=== PATIENT | male | born 1950 | race Caucasian/White ===

== ENCOUNTER → 2017-06-28 | Outpatient (CLI) | payer MEDICARE ==
[~2017-06-28] MED LIST: ASPI325; ASPI325 PO; BENZ2; BUPR100ER PO; CLIN300 PO; CLON.2 PO; ENABLEX; FISH1000; FISH1000 PO; FURO20 PO; GABA100 PO; GABA600; GABA600 PO; GABA800 PO; GLYCOLAX; HALO5; LISI10 PO; LISI20; LORA1 PO; LORA2 PO; METH10; METH10 PO; METH40; METH40 PO; METO50; METO50ER PO; OMEP20ER; OMEP20ER PO; POTA10T PO; QUET100; SIMV20; SIMV20 PO; SIMV5 PO; UNKNOWN BP MED; VENAFAXINE
== END | disposition home or self-care (01) ==
LOC: LAB EV 12:07
DX: R31.9 Hematuria, unspecified (principal)
CPT/HCPCS: 87077; 87086; 87186

== ENCOUNTER → 2018-08-14 | Outpatient (CLI) | payer MEDICARE | END | disposition home or self-care (01) | LOC: LAB SHORT 16:00 → LAB EV 16:00 | DX: Z51.81 Encounter for therapeutic drug level monitoring (principal); Z79.899 Other long term (current) drug therapy | CPT/HCPCS: G0480 ==

== ENCOUNTER 2019-09-08 05:56 | Observation (INO) | payer MEDICARE ==
[~2019-09-08] VITALS: Ht 177.8 cm; Wt 118.5 kg
[~2019-09-08 05:56] MED LIST changes: +FISH OIL 1,0001 EACH PO; -FISH1000 PO; -SIMV5 PO; +ZOCOR20 MG PO
[2019-09-08 06:43] LABS: BASOPHILS ABSOLUTE AUTO 0.05 K/mm3 (0.00-0.23); BASOPHILS PERCENT AUTO 0 % (0-2); EOSINOPHILS ABSOLUTE AUTO 0.03 K/mm3 (0.00-0.68); EOSINOPHILS PERCENT AUTO 0 % (0-6); Hematocrit 34.1 % (37.0-53.0); Hemoglobin 11.1 g/dL (13.5-17.5); IMMATURE GRAN ABSOLUTE AUTO 0.07 K/mm3 (0.00-0.10); IMMATURE GRAN PERCENT AUTO 1 % (0-1); LYMPHOCYTES PERCENT AUTO 7 % (21-46); MONOCYTES PERCENT AUTO 6 % (4-13); Mean Corpuscular HGB 29.1 pg (26.0-34.0); Mean Corpuscular HGB Conc 32.6 g/dL (31.5-36.5); Mean Corpuscular Volume 90 fL (80-100); Mean Platelet Volume 9.7 fL (9.1-12.4); NEUTROPHILS ABSOLUTE AUTO 11.49 K/mm3 (1.96-9.15); NEUTROPHILS PERCENT AUTO 86 % (41-73); Platelet Count 208 K/mm3 (150-400); RDW Coefficient Variation 13.7 % (11.7-14.2); RDW Standard Deviation 44.4 fL (35.1-46.3); Red Blood Cell Count 3.81 M/mm3 (4.30-5.90); White Blood Cell Count 13.34 K/mm3 (4.00-11.30)
[2019-09-08 07:09] LABS: Alanine Aminotransfer (ALT/SGP 14 U/L (12-78); Albumin, Blood 3.2 g/dL (3.4-5.0); Albumin/Globulin Ratio 1.1 (0.8-1.8); Alk Phos 52 U/L (50-136); Anion Gap 6 mmol/L (6-16); Aspartate Aminotrans (AST/SGOT 14 U/L (12-37); Bilirubin, Total 0.6 mg/dL (0.1-1.0); Blood Urea Nitrogen 14 mg/dL (8-24); Bun/Creatinine Ratio 17.5 (12.0-20.0); CO2, Blood 28 mmol/L (21-32); Calcium, Blood 8.2 mg/dL (8.5-10.1); Chloride, Blood 104 mmol/L (98-108); Globulin, Blood 2.8 g/dL (2.2-4.0); Glomerular Filtration Rate >60 (60-); Glucose, Blood 137 mg/dL (70-99); Potassium, Blood 4.2 mmol/L (3.5-5.5); Sodium, Blood 138 mmol/L (136-145); Troponin I <0.015 ng/mL (0.000-0.040)
[2019-09-08 08:01] LABS: Source, Urine Voided
[2019-09-08 08:14] LABS: Bilirubin, Urine Neg (Neg); Blood, Urine 4+ (Neg); Glucose Qualitative, Urine Neg (Neg); Ketones, Urine Neg (Neg); Leukocyte Esterase, Urine Neg (Neg); Nitrite, Urine Neg (Neg); Protein, Urine 1+ (Neg); Urobilinogen, Urine 1+ (Normal)
[2019-09-08 08:23] LABS: Appearance, Urine Clear (Clear); Bacteria Not Seen /hpf; Color, Urine Yellow (P-Yellow); Squamous Epithelial Cells Not Seen /hpf (Few); White Blood Cells, Urine Not Seen /hpf (0-5)
[2019-09-08 08:29] LABS: U Amphetamine Screen Not Detected; U Barbituate Screen Not Detected; U Benzodiazapine Screen DETECTED; U Buprenorphine Screen Not Detected; U Cannabinoids Screen Not Detected; U Cocaine Screen Not Detected; U Methadone Screen DETECTED; U Methamphetamine Screen Not Detected; U Opiates Screen Not Detected; U Oxycodone Screen Not Detected; U Phencyclidine Screen Not Detected; U Propoxyphene Screen Not Detected
--- NOTE | 2019-09-08 18:25 | NUR ---
PCU ADMIT/DAYSHIFT SUMMARY PATIENT ARRIVED TO UNIT VIA GURNEY FROM ER. PATIENT SLIDE SELF FROM GURNEY TO UNIT BED. LARGE FIRM HEMATOMA/ECCHYMOSIS NOTED ON LEFT HIP/THIGH - IMAGING COMPLETED - DISCUSSED FINDING WITH MD LOOMIS - PROVIDER STATED TO MONITOR SITE FOR REDNESS & S/SX OF INFECTION. LEFT CALF ALSO REPORT TO PROVIDER - NOTED TO BE MORE EDEMATOUS THAN RIGHT. BLE ELEVATED, BILATERAL PULSES STRONG/INTACT. PATIENT REMAINS ON ROOM AIR. CARDIEZEM GTT STARTED THIS SHIFT PER EMAR AT 5MG/HR. HEART RATE HAS IMPROVED FROM AFIB 130'S TO AFIB 80'S - OTHER VSS AND PATIENT ON ROOM AIR. PATIENT REPORTS CHRONIC PAIN AND ACUTE LEFT HIP PAIN. PATIENT REMAINED DROWSY T/O SHIFT - PAIN MEDICATIONS HELD THIS AFTERNOON. PATIENTS SON AND CAREGIVER UPDATE ON CONDITION THIS SHIFT. PATIENT ABLE TO SHIFT SELF IN BED BUT HAS NOT STOOD FOR THIS NURSE. PATIENT CONFUSED TO DATE BUT VERBALIZED HIS AND LOCATION. PATIENT HAS HAD MULTIPLE FALLS AT HOME PER CAREGIVER, BUT PER SON DRIVES HIMSELF TO HIS APPTS AND SHOPPING. PATIENT IS UNAWARE OF HIS HOME MEDICATIONS - ADMIT INCOMPLETE IN THIS AREA. NO ACUTE DISTRESS NOTED AT THIS TIME. WILL CONTINUE TO MONITOR AND REPORT TO NOC SHIFT RN, MONICA Harper
[2019-09-09 05:07] LABS: BASOPHILS ABSOLUTE AUTO 0.03 K/mm3 (0.00-0.23); BASOPHILS PERCENT AUTO 0 % (0-2); EOSINOPHILS PERCENT AUTO 1 % (0-6); Hemoglobin 9.1 g/dL (13.5-17.5); IMMATURE GRAN ABSOLUTE AUTO 0.04 K/mm3 (0.00-0.10); IMMATURE GRAN PERCENT AUTO 1 % (0-1); LYMPHOCYTES ABSOLUTE AUTO 1.64 K/mm3 (0.84-5.20); LYMPHOCYTES PERCENT AUTO 20 % (21-46); MONOCYTES ABSOLUTE AUTO 0.88 K/mm3 (0.16-1.47); MONOCYTES PERCENT AUTO 11 % (4-13); Mean Corpuscular HGB 29.1 pg (26.0-34.0); Mean Corpuscular HGB Conc 31.4 g/dL (31.5-36.5); Mean Platelet Volume 9.7 fL (9.1-12.4); NEUTROPHILS ABSOLUTE AUTO 5.41 K/mm3 (1.96-9.15); NEUTROPHILS PERCENT AUTO 67 % (41-73); Platelet Count 174 K/mm3 (150-400); RDW Coefficient Variation 14.1 % (11.7-14.2); Red Blood Cell Count 3.13 M/mm3 (4.30-5.90)
[2019-09-09 05:10] LABS: Mean Corpuscular Volume 93 fL (80-100)
[2019-09-09 05:21] LABS: International Normalized Ratio 1.07; Prothrombin Time Results 11.4 Sec (9.7-11.5)
--- NOTE | 2019-09-09 05:28 | NUR ---
SHIFT SUMMARY PT ALERT, ORIENTED TO SELF, LOCATION, & EVENT, DISORIENTED TO TIME. PT STATES DATE TO BE MAY 07, 2001. PT ALSO STATING "GOOD MORNING" WHEN ROUNDING ON PT @ APPROX 2200 THIS SHIFT. PT REORIENTED TO TIME. BP LOW, OTHERWISE VSS. NO EVENTS OVER NIGHT. LUNG SOUNDS W/ EXPIRATORY WHEEZE. SPO2 > 92% ON RA. MONITOR SHOWS AFIB, HR 60's-90's. CARDIZEM GTT PLACED ON STANDBY @ APPROX 1900 THIS SHIFT AND HAS REMAINED ON STANDBY. NS W/ KCL GTT INFUSING PER ORDERS. BRUISING NOTED TO L HIP/POSTERIOR UPPER LEG. WILL CONTINUE TO MONITOR AND PROVIDE CARE UNTIL REPORT OFF TO DAY SHIFT RN.
[2019-09-09 05:31] LABS: Albumin, Blood 2.7 g/dL (3.4-5.0); Anion Gap 4 mmol/L (6-16); Blood Urea Nitrogen 15 mg/dL (8-24); CO2, Blood 30 mmol/L (21-32); Calcium, Blood 7.8 mg/dL (8.5-10.1); Chloride, Blood 107 mmol/L (98-108); Creatinine, Blood 0.83 mg/dL (0.60-1.20); Glomerular Filtration Rate >60 (60-); Glucose, Blood 99 mg/dL (70-99); Phosphorus, Blood 2.9 mg/dL (2.5-4.9); Sodium, Blood 141 mmol/L (136-145)
--- NOTE | 2019-09-09 12:12 | NUR ---
Patient is sitting up in bed and alert. Patient tells me about his fall and about his medical history. Patient also tells about his cousin who was a good friend of this writer technical publications. We talk about the positive affect he has had on the both of us. Patient talks about his life, family and diogo history. Patient shares peronal stories and issues. I listen empathically, normalize patient's experience and provide pastoral certified alcohol counselor and prayer. Patient responds well and shows signs of restored diogo. I will continue to remain available to patient and family.
[2019-09-09] MEDS ORDERED: GABA300 PO (12:39)
[2019-09-09] MEDS ORDERED: DULO60 PO (12:47)
[2019-09-09] MEDS ORDERED: Norco 5-325 Ta1 EACH PO (12:50)
[2019-09-09] MEDS ORDERED: TRAZ50 PO (12:51)
--- NOTE | 2019-09-09 13:45 | NUR ---
DISCHARGED TO HOME. INSTRUCTIONS REVIEWED WITH SON VIA TELEPHONE. RX'S PHONED INTO [facility] BY PERSONNEL GENERALIST MANAGER AMY.
== END 2019-09-09 13:47 | disposition home or self-care (01) ==
LOC: ER 05:56 → PCU 05:57
PROVIDERS: Emergency Medicine; ADMIT Internal Medicine Gastroenterology
DX: I48.91 Unspecified atrial fibrillation (principal); I69.351 Hemiplegia and hemiparesis following cerebral infarction affecting right dominant side; E78.00 Pure hypercholesterolemia, unspecified; F17.210 Nicotine dependence, cigarettes, uncomplicated; F17.290 Nicotine dependence, other tobacco product, uncomplicated; Z79.82 Long term (current) use of aspirin; Z79.899 Other long term (current) drug therapy; G89.29 Other chronic pain
CPT/HCPCS: 36415; 71045; 73502; 73700; 80053; 80069; 81001; 83880; 84443; 84484; 85025; 85610; 93005; 93010; 96361; 96374; 96375; 96376; 99285-25; A9270-GY; C8929; G0378; J1170; J2405; J3480; J7030; Q9957

== ENCOUNTER 2019-11-24 08:20 | Emergency (ER) | payer MEDICARE ==
[~2019-11-24] VITALS: Ht 177.8 cm; Wt 113.4 kg
[~2019-11-24 08:20] MED LIST changes: +DULO60 PO; +GABA300 PO; +Norco 5-325 Ta1 EACH PO; +TRAZ50 PO
[2019-11-24 08:43] LABS: Source, Urine Voided
[2019-11-24 08:51] LABS: Appearance, Urine Clear (Clear); Bilirubin, Urine Neg (Neg); Blood, Urine 4+ (Neg); Color, Urine Yellow (P-Yellow); Glucose Qualitative, Urine Neg (Neg); Ketones, Urine 1+ (Neg); Leukocyte Esterase, Urine Neg (Neg); Nitrite, Urine Neg (Neg); Protein, Urine Neg (Neg); Urobilinogen, Urine NORM (Normal)
[2019-11-24 08:59] LABS: White Blood Cells, Urine 0-2 /hpf (0-5)
[2019-11-24 09:00] LABS: Bacteria Rare /hpf; Squamous Epithelial Cells Not Seen /hpf (Few)
[2019-11-24 09:34] LABS: BASOPHILS ABSOLUTE AUTO 0.03 K/mm3 (0.00-0.23); BASOPHILS PERCENT AUTO 0 % (0-2); EOSINOPHILS PERCENT AUTO 0 % (0-6); Hematocrit 46.7 % (37.0-53.0); Hemoglobin 14.8 g/dL (13.5-17.5); IMMATURE GRAN ABSOLUTE AUTO 0.07 K/mm3 (0.00-0.10); IMMATURE GRAN PERCENT AUTO 1 % (0-1); LYMPHOCYTES ABSOLUTE AUTO 0.84 K/mm3 (0.84-5.20); LYMPHOCYTES PERCENT AUTO 8 % (21-46); MONOCYTES PERCENT AUTO 3 % (4-13); Mean Corpuscular HGB 28.2 pg (26.0-34.0); Mean Corpuscular HGB Conc 31.7 g/dL (31.5-36.5); Mean Corpuscular Volume 89 fL (80-100); Mean Platelet Volume 9.5 fL (9.1-12.4); NEUTROPHILS ABSOLUTE AUTO 9.85 K/mm3 (1.96-9.15); NEUTROPHILS PERCENT AUTO 89 % (41-73); Platelet Count 230 K/mm3 (150-400); RDW Coefficient Variation 13.5 % (11.7-14.2); Red Blood Cell Count 5.25 M/mm3 (4.30-5.90); White Blood Cell Count 11.09 K/mm3 (4.00-11.30)
[2019-11-24] MEDS ORDERED: ESCITALOPRAM TAB 20M (09:36)
[2019-11-24 09:53] LABS: Alanine Aminotransfer (ALT/SGP 19 U/L (12-78); Albumin, Blood 3.9 g/dL (3.4-5.0); Albumin/Globulin Ratio 1.1 (0.8-1.8); Alk Phos 70 U/L (50-136); Anion Gap 4 mmol/L (6-16); Aspartate Aminotrans (AST/SGOT 15 U/L (12-37); Bilirubin, Total 0.3 mg/dL (0.1-1.0); Blood Urea Nitrogen 15 mg/dL (8-24); Bun/Creatinine Ratio 17.6 (12.0-20.0); CO2, Blood 31 mmol/L (21-32); Calcium, Blood 8.7 mg/dL (8.5-10.1); Chloride, Blood 102 mmol/L (98-108); Creatinine, Blood 0.85 mg/dL (0.60-1.20); Globulin, Blood 3.7 g/dL (2.2-4.0); Glomerular Filtration Rate >60 (60-); Glucose, Blood 141 mg/dL (70-99); Potassium, Blood 4.1 mmol/L (3.5-5.5); Sodium, Blood 137 mmol/L (136-145); Total Protein, Blood 7.6 g/dL (6.4-8.2)
== END 2019-11-24 14:37 | disposition home or self-care (01) ==
LOC: ER 08:20
PROVIDERS: Emergency Medicine
DX: I48.91 Unspecified atrial fibrillation (principal); G89.29 Other chronic pain; M54.9 Dorsalgia, unspecified; R41.82 Altered mental status, unspecified; R32 Unspecified urinary incontinence; R31.29 Other microscopic hematuria; G40.909 Epilepsy, unspecified, not intractable, without status epilepticus; K21.9 Gastro-esophageal reflux disease without esophagitis; F32.9 Major depressive disorder, single episode, unspecified; F41.9 Anxiety disorder, unspecified; I10 Essential (primary) hypertension; E78.00 Pure hypercholesterolemia, unspecified; F17.210 Nicotine dependence, cigarettes, uncomplicated; Z91.030 Bee allergy status; Z79.82 Long term (current) use of aspirin; Z86.73 Personal history of transient ischemic attack (TIA), and cerebral infarction without residual deficits; Z79.899 Other long term (current) drug therapy
CPT/HCPCS: 70450; 71045; 80053; 81001; 85025; 93005; 93010; 96374; 96375; 99285-25; J1885; J3010

== ENCOUNTER 2021-02-06 00:51 | Emergency (ER) | payer MEDICARE ==
[~2021-02-06] VITALS: Ht 177.8 cm; Wt 98.4 kg
[~2021-02-06 00:51] MED LIST changes: +ESCITALOPRAM TAB 20M
[2021-02-06 01:19] LABS: BASOPHILS ABSOLUTE AUTO 0.03 K/mm3 (0.00-0.23); BASOPHILS PERCENT AUTO 0 % (0-2); EOSINOPHILS ABSOLUTE AUTO 0.02 K/mm3 (0.00-0.68); EOSINOPHILS PERCENT AUTO 0 % (0-6); Hematocrit 41.1 % (37.0-53.0); Hemoglobin 13.5 g/dL (13.5-17.5); IMMATURE GRAN ABSOLUTE AUTO 0.05 K/mm3 (0.00-0.10); IMMATURE GRAN PERCENT AUTO 1 % (0-1); LYMPHOCYTES ABSOLUTE AUTO 1.26 K/mm3 (0.84-5.20); LYMPHOCYTES PERCENT AUTO 11 % (21-46); MONOCYTES ABSOLUTE AUTO 1.01 K/mm3 (0.16-1.47); MONOCYTES PERCENT AUTO 9 % (4-13); Mean Corpuscular HGB 28.8 pg (26.0-34.0); Mean Corpuscular HGB Conc 32.8 g/dL (31.5-36.5); Mean Corpuscular Volume 88 fL (80-100); Mean Platelet Volume 9.5 fL (9.1-12.4); NEUTROPHILS ABSOLUTE AUTO 8.74 K/mm3 (1.96-9.15); NEUTROPHILS PERCENT AUTO 79 % (41-73); Platelet Count 234 K/mm3 (150-400); RDW Coefficient Variation 13.7 % (11.7-14.2); RDW Standard Deviation 44.2 fL (35.1-46.3); Red Blood Cell Count 4.69 M/mm3 (4.30-5.90); White Blood Cell Count 11.11 K/mm3 (4.00-11.30)
[2021-02-06 01:43] LABS: Troponin I <0.015 ng/mL (0.000-0.040)
[2021-02-06 01:44] LABS: Alanine Aminotransfer (ALT/SGP 24 U/L (12-78); Albumin, Blood 3.1 g/dL (3.4-5.0); Albumin/Globulin Ratio 0.9 (0.8-1.8); Alk Phos 60 U/L (50-136); Anion Gap 5 mmol/L (6-16); Bilirubin, Total 0.3 mg/dL (0.1-1.0); Blood Urea Nitrogen 19 mg/dL (8-24); Bun/Creatinine Ratio 20.8 (12.0-20.0); CO2, Blood 26 mmol/L (21-32); Calcium, Blood 8.6 mg/dL (8.5-10.1); Chloride, Blood 105 mmol/L (98-108); Creatinine, Blood 0.91 mg/dL (0.60-1.20); Globulin, Blood 3.6 g/dL (2.2-4.0); Glomerular Filtration Rate >60 (60-); Glucose, Blood 95 mg/dL (70-99); Potassium, Blood 4.2 mmol/L (3.5-5.5); Sodium, Blood 136 mmol/L (136-145); Total Protein, Blood 6.7 g/dL (6.4-8.2)
[2021-02-06 01:49] LABS: International Normalized Ratio 1.06; Prothrombin Time Results 11.1 Sec (9.7-11.5)
[2021-02-06 01:55] LABS: Aspartate Aminotrans (AST/SGOT 19 U/L (12-37)
[2021-02-06 03:13] LABS: Source, Urine Clean Catch
[2021-02-06 03:14] LABS: Bilirubin, Urine Neg (Neg); Blood, Urine 2+ (Neg); Glucose Qualitative, Urine Neg (Neg); Ketones, Urine Neg (Neg); Leukocyte Esterase, Urine Neg (Neg); Nitrite, Urine Neg (Neg); Protein, Urine Neg (Neg); Specific Gravity, Urine 1.015 (1.003-1.022); Urobilinogen, Urine NORM (Normal)
[2021-02-06 03:15] LABS: Appearance, Urine Clear (Clear); Color, Urine Yellow (P-Yellow)
[2021-02-06 03:21] LABS: Bacteria Few /hpf; Squamous Epithelial Cells Not Seen /hpf (Few); White Blood Cells, Urine 0-2 /hpf (0-5)
[2021-02-06 03:22] LABS: Hyaline Casts 0-2 /lpf (0-2); Mucus Light (0-Heavy)
== END 2021-02-06 04:22 | disposition home or self-care (01) ==
LOC: ER 00:51
PROVIDERS: Emergency Medicine
DX: S51.012A Laceration without foreign body of left elbow, initial encounter (principal); G40.909 Epilepsy, unspecified, not intractable, without status epilepticus; K21.9 Gastro-esophageal reflux disease without esophagitis; I10 Essential (primary) hypertension; F17.210 Nicotine dependence, cigarettes, uncomplicated; Z86.73 Personal history of transient ischemic attack (TIA), and cerebral infarction without residual deficits; Z91.030 Bee allergy status; Z79.899 Other long term (current) drug therapy; Z79.82 Long term (current) use of aspirin; W19.XXXA Unspecified fall, initial encounter
CPT/HCPCS: 36415; 70450; 72125; 73080; 80053; 81001; 83605; 84484; 85025; 85610; 90471; 90714; 93005; 93010; 99284-25

== ENCOUNTER 2022-10-15 22:20 | Emergency (ER) | payer MEDICARE ==
[~2022-10-15] VITALS: Ht 180.3 cm; Wt 106.6 kg
[2022-10-15 23:11] LABS: BASOPHILS ABSOLUTE AUTO 0.02 K/mm3 (0.00-0.23); BASOPHILS PERCENT AUTO 0 % (0-2); EOSINOPHILS ABSOLUTE AUTO 0.05 K/mm3 (0.00-0.68); EOSINOPHILS PERCENT AUTO 1 % (0-6); Hematocrit 41.9 % (37.0-53.0); Hemoglobin 13.8 g/dL (13.5-17.5); IMMATURE GRAN ABSOLUTE AUTO 0.03 K/mm3 (0.00-0.10); IMMATURE GRAN PERCENT AUTO 0 % (0-1); LYMPHOCYTES ABSOLUTE AUTO 0.64 K/mm3 (0.84-5.20); LYMPHOCYTES PERCENT AUTO 7 % (21-46); MONOCYTES ABSOLUTE AUTO 0.59 K/mm3 (0.16-1.47); MONOCYTES PERCENT AUTO 6 % (4-13); Mean Corpuscular HGB 28.6 pg (26.0-34.0); Mean Corpuscular HGB Conc 32.9 g/dL (31.5-36.5); Mean Corpuscular Volume 87 fL (80-100); Mean Platelet Volume 9.7 fL (9.1-12.4); NEUTROPHILS ABSOLUTE AUTO 8.43 K/mm3 (1.96-9.15); NEUTROPHILS PERCENT AUTO 86 % (41-73); Platelet Count 125 K/mm3 (150-400); RDW Coefficient Variation 13.2 % (11.7-14.2); RDW Standard Deviation 41.4 fL (35.1-46.3); Red Blood Cell Count 4.83 M/mm3 (4.30-5.90); White Blood Cell Count 9.76 K/mm3 (4.00-11.30)
[2022-10-15 23:43] LABS: Albumin, Blood 3.5 g/dL (3.4-5.0); Bilirubin, Total 0.5 mg/dL (0.1-1.0); Calcium, Blood 8.7 mg/dL (8.5-10.1); Creatinine, Blood 1.07 mg/dL (0.60-1.20); Globulin, Blood 3.4 g/dL (2.2-4.0); Potassium, Blood 4.6 mmol/L (3.5-5.5); Total Protein, Blood 6.9 g/dL (6.4-8.2)
[2022-10-16 01:19] LABS: Source, Urine Straight Cath
[2022-10-16 01:43] LABS: Appearance, Urine Clear (Clear); Bilirubin, Urine Neg (Neg); Blood, Urine 2+ (Neg); Color, Urine Yellow (P-Yellow); Glucose Qualitative, Urine Neg (Neg); Ketones, Urine Neg (Neg); Leukocyte Esterase, Urine Neg (Neg); Nitrite, Urine Neg (Neg); Protein, Urine Neg (Neg); Urobilinogen, Urine 1+ (Normal)
[2022-10-16 01:57] LABS: Bacteria Few /hpf; Red Blood Cells, Urine 0-2 /hpf (0-2); Squamous Epithelial Cells Few /hpf (Few); White Blood Cells, Urine 0-2 /hpf (0-5)
[2022-10-16 03:04] VITALS: BP 96/66
== END 2022-10-16 04:43 | disposition home or self-care (01) ==
LOC: ER 22:20
PROVIDERS: Emergency Medicine
DX: R41.82 Altered mental status, unspecified (principal); Z88.8 Allergy status to other drugs, medicaments and biological substances; Z79.899 Other long term (current) drug therapy; Z79.82 Long term (current) use of aspirin; G40.909 Epilepsy, unspecified, not intractable, without status epilepticus; K21.9 Gastro-esophageal reflux disease without esophagitis; E78.00 Pure hypercholesterolemia, unspecified; I10 Essential (primary) hypertension; F17.210 Nicotine dependence, cigarettes, uncomplicated
CPT/HCPCS: 80053; 81001; 85025; 93005; 93010; 99285-25

== ENCOUNTER → 2023-05-18 | Outpatient (CLI) | payer MEDICARE ==
[2023-05-18 09:58] LABS: BASOPHILS ABSOLUTE AUTO 0.04 K/mm3 (0.00-0.23); BASOPHILS PERCENT AUTO 1 % (0-2); EOSINOPHILS ABSOLUTE AUTO 0.29 K/mm3 (0.00-0.68); EOSINOPHILS PERCENT AUTO 4 % (0-6); Hematocrit 37.7 % (37.0-53.0); Hemoglobin 11.9 g/dL (13.5-17.5); IMMATURE GRAN ABSOLUTE AUTO 0.09 K/mm3 (0.00-0.10); IMMATURE GRAN PERCENT AUTO 1 % (0-1); LYMPHOCYTES ABSOLUTE AUTO 1.09 K/mm3 (0.84-5.20); LYMPHOCYTES PERCENT AUTO 16 % (21-46); MONOCYTES ABSOLUTE AUTO 0.52 K/mm3 (0.16-1.47); MONOCYTES PERCENT AUTO 8 % (4-13); Mean Corpuscular HGB 28.8 pg (26.0-34.0); Mean Corpuscular HGB Conc 31.6 g/dL (31.5-36.5); Mean Corpuscular Volume 91 fL (80-100); Mean Platelet Volume 8.7 fL (9.1-12.4); NEUTROPHILS PERCENT AUTO 69 % (41-73); Platelet Count 160 K/mm3 (150-400); Red Blood Cell Count 4.13 M/mm3 (4.30-5.90); White Blood Cell Count 6.63 K/mm3 (4.00-11.30)
[2023-05-18 10:04] LABS: Bun/Creatinine Ratio 12.9 (12.0-20.0); Calcium, Blood 8.5 mg/dL (8.5-10.1); Creatinine, Blood 1.01 mg/dL (0.60-1.20); Potassium, Blood 4.1 mmol/L (3.5-5.5)
== END | disposition home or self-care (01) ==
LOC: LAB 09:54 → LAB SHORT 09:54
PROVIDERS: Physician Assistant Medical
DX: R60.9 Edema, unspecified (principal)
CPT/HCPCS: 80048; 85025; 85379

== ENCOUNTER → 2023-08-12 | Outpatient (CLI) | payer MEDICARE | END | disposition home or self-care (01) | LOC: LAB 10:06 → LAB SHORT 10:06 | DX: N39.0 Urinary tract infection, site not specified (principal) ==

== ENCOUNTER 2023-11-07 07:07 | Inpatient (IN) | payer MEDICARE ==
[~2023-11-07] VITALS: Ht 172.7 cm; Wt 127.9 kg
[~2023-11-07 07:07] MED LIST changes: +ACETAMINOPHEN500 MG PO; +ALBU90OI; +Aspir 8181 MG PO; +DULOXETINE HCL60 M1; +FUROSEMIDE20 MG PO; +GABAPENTIN600 MG PO; +K-Dur10 MEQ; +METHADONE HCL1010 PO; +METOPROLOL TART5010 PO; +MOBIC15 MG PO; +OMEPRAZOLE20 MG PO; +Simvastatin20 MG PO; +TAMSULOSIN HCL0.4 M1 PO; +TRAZ100 PO
[2023-11-07] MEDS ORDERED: Albuterol 2.5 MG/3 ML VIAL INH SCH (07:15)
[2023-11-07] MEDS ORDERED: MethylPREDNISolone Sod Succ 125 MG Vial IV ONE (07:15)
[2023-11-07 07:24] LABS: BASOPHILS ABSOLUTE AUTO 0.05 K/mm3 (0.00-0.23); BASOPHILS PERCENT AUTO 1 % (0-2); EOSINOPHILS ABSOLUTE AUTO 0.22 K/mm3 (0.00-0.68); EOSINOPHILS PERCENT AUTO 2 % (0-6); Hematocrit 38.7 % (37.0-53.0); Hemoglobin 12.6 g/dL (13.5-17.5); IMMATURE GRAN ABSOLUTE AUTO 0.05 K/mm3 (0.00-0.10); IMMATURE GRAN PERCENT AUTO 1 % (0-1); LYMPHOCYTES ABSOLUTE AUTO 0.84 K/mm3 (0.84-5.20); LYMPHOCYTES PERCENT AUTO 8 % (21-46); MONOCYTES ABSOLUTE AUTO 0.59 K/mm3 (0.16-1.47); MONOCYTES PERCENT AUTO 6 % (4-13); Mean Corpuscular HGB 28.6 pg (26.0-34.0); Mean Corpuscular HGB Conc 32.6 g/dL (31.5-36.5); Mean Corpuscular Volume 88 fL (80-100); NEUTROPHILS ABSOLUTE AUTO 8.83 K/mm3 (1.96-9.15); NEUTROPHILS PERCENT AUTO 83 % (41-73); Platelet Count 136 K/mm3 (150-400); RDW Coefficient Variation 14.1 % (11.7-14.2); RDW Standard Deviation 45.4 fL (35.1-46.3); White Blood Cell Count 10.58 K/mm3 (4.00-11.30)
[2023-11-07 07:43] LABS: Albumin, Blood 3.4 g/dL (3.4-5.0); Albumin/Globulin Ratio 1.1 (0.8-1.8); Bilirubin, Total 0.6 mg/dL (0.1-1.0); Bun/Creatinine Ratio 13.1 (12.0-20.0); Calcium, Blood 8.1 mg/dL (8.5-10.1); Creatinine, Blood 0.84 mg/dL (0.60-1.20); Globulin, Blood 3.1 g/dL (2.2-4.0); Potassium, Blood 4.2 mmol/L (3.5-5.5); Total Protein, Blood 6.5 g/dL (6.4-8.2)
[2023-11-07 08:13] LABS: Influenza A, PCR NEGATIVE (NEGATIVE); Influenza B, PCR NEGATIVE (NEGATIVE); Resp Syncytial Virus, PCR NEGATIVE (NEGATIVE); SARS-Cov-2 (COVID-19) PCR, MMC NEGATIVE (NEGATIVE)
[2023-11-07] MEDS ORDERED: Azithromycin 500 MG in NS 250 ML IV ONE (08:40)
[2023-11-07] MEDS ORDERED: CefTRIAXone Sodium 1,000 MG in NS 100 ML IV ONE (08:40)
[2023-11-07] MEDS ORDERED: Methadone HCL 10 MG TAB PO ONE (09:40)
[2023-11-07] MEDS ORDERED: ACET325 PO (11:50)
[2023-11-07] MEDS ORDERED: FLUTICASONE-SAL12 G1 INH (11:54)
[2023-11-07] MEDS ORDERED: ALBU90OI INH (11:55)
[2023-11-07] MEDS ORDERED: DULO60 PO (11:56)
[2023-11-07] MEDS ORDERED: LOPE2C PO (11:58)
[2023-11-07] MEDS ORDERED: MYLANTA MAXIMUM10 ML PO (12:00)
[2023-11-07] MEDS ORDERED: MethylPREDNISolone Sod Succ 40 MG VIAL IV SCH (12:00)
[2023-11-07] MEDS ORDERED: Albuterol 2.5 MG/3 ML VIAL INH PRN (12:00)
[2023-11-07] MEDS ORDERED: POTA10T PO (12:01)
[2023-11-07] MEDS ORDERED: MIRALAX17 GM PO (12:01)
[2023-11-07] MEDS ORDERED: QUET25 PO (12:02)
[2023-11-07] MEDS ORDERED: TAMS.4ER PO (12:03)
[2023-11-07] MEDS ORDERED: Ipratropium/Albuterol SulF 2.5-0.5MG/3 ML Amp INH SCH (12:05)
[2023-11-07 12:12] VITALS: BP 136/109
[2023-11-07 12:35] LABS: International Normalized Ratio 1.03
[2023-11-07 12:51] VITALS: BP 123/83
[2023-11-07] MEDS ORDERED: Methadone HCL 10 MG TAB PO SCH (13:00)
--- NOTE | 2023-11-07 13:35 | NUR ---
ADMISSION NOTE: PATIENT ARRIVED TO THE UNIT AT 1150 VIA GURNEY. 4 STAFF MEMEBERS USES TO TRANSFER PATIENT TO BED VIA SLIDER SHEET. PATIENT STATES THAT HE CANNOT WALK OR STAND AND THAT HE USES A CANE/4 TORRE TO GET AROUND. HE HAS L SIDED DEFICIT BASED ON ASSSESSMENT. HE IS ALERT AND COMMUNICATING WITH STAFF. VITALS OBTAINED AND TELE STARTED. PATIENT SETTLED IN ROOM; ATE LUNCH. NO SIGNS OR SYMPTOMS OF DISTRESS, PLAN OF CARE ONGOING.
[2023-11-07] MEDS ORDERED: Gabapentin 300 MG Cap PO SCH (14:00)
[2023-11-07] MEDS ORDERED: QUEtiapine Fumarate 25 MG Tab PO PRN (15:10)
[2023-11-07 15:46] VITALS: BP 106/56
[2023-11-07] MEDS ORDERED: Metoprolol Tartrate 50 MG Tab PO ONE (17:00)
--- NOTE | 2023-11-07 17:40 | NUR ---
SHIFT SUMMARY: PT IS A&OX2-3 AND HAS BEEN IN BED; [facility]. SPOKE WITH PATIENT'S FAMILY SEEMS PATIENT GETS AROUND WITH A SCOOTER; DOESN'T WALK MUCH. 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 HE DID BECOME AGGITATED THIS AFTERNOON, RESULTING IN HIM THROWING HIS TELE BOX ACROSSED THE ROOM, FAMILY WAS PRESENT AT THIS TIME AND HELPED DEESCLATE THE PATIENT, BUT WARNED STAFF THAT HE CAN BECOME COMBATIVE. CALL MADE TO DR. BLAIR AND GOT PRN SEROQUEL. MEDICATION GIVEN AND CALMED PATIENT DOWN. PATIENT ALSO HAS BEEN SUSTATINING IN THE 110'S ON TELE; CALL MADE TO DR. BLAIR; ORDER TO GIVE LOPRESSOR 50 MG NOW AND SKIP 2100 DOSE. PATIENT IS IN BED, CALL LIGHT WITHIN REACH, NO SIGNS OR SYMPTOMS OF DISTRESS, PLAN OF CARE ONGOING.
[2023-11-07 19:20] VITALS: BP 111/85
[2023-11-07] MEDS ORDERED: Metoprolol Tartrate 50 MG Tab PO SCH (21:00)
[2023-11-07] MEDS ORDERED: Atorvastatin 10 MG Tab PO SCH (21:00)
[2023-11-07] MEDS ORDERED: TraZODone HCl 100 MG Tab PO SCH (21:00)
[2023-11-07] MEDS ORDERED: DULoxetine HCL 60 MG Capsule DR PO SCH (21:00)
[2023-11-08 04:42] VITALS: BP 138/95
[2023-11-08 05:41] LABS: BASOPHILS ABSOLUTE AUTO 0.02 K/mm3 (0.00-0.23); BASOPHILS PERCENT AUTO 0 % (0-2); EOSINOPHILS PERCENT AUTO 0 % (0-6); Hematocrit 35.8 % (37.0-53.0); Hemoglobin 11.5 g/dL (13.5-17.5); IMMATURE GRAN ABSOLUTE AUTO 0.14 K/mm3 (0.00-0.10); IMMATURE GRAN PERCENT AUTO 1 % (0-1); LYMPHOCYTES ABSOLUTE AUTO 0.71 K/mm3 (0.84-5.20); LYMPHOCYTES PERCENT AUTO 5 % (21-46); MONOCYTES ABSOLUTE AUTO 0.29 K/mm3 (0.16-1.47); MONOCYTES PERCENT AUTO 2 % (4-13); Mean Corpuscular HGB 28.3 pg (26.0-34.0); Mean Corpuscular HGB Conc 32.1 g/dL (31.5-36.5); Mean Corpuscular Volume 88 fL (80-100); Mean Platelet Volume 9.4 fL (9.1-12.4); NEUTROPHILS ABSOLUTE AUTO 14.18 K/mm3 (1.96-9.15); NEUTROPHILS PERCENT AUTO 93 % (41-73); Platelet Count 132 K/mm3 (150-400); RDW Coefficient Variation 14.4 % (11.7-14.2); RDW Standard Deviation 46.2 fL (35.1-46.3); Red Blood Cell Count 4.06 M/mm3 (4.30-5.90); White Blood Cell Count 15.34 K/mm3 (4.00-11.30)
[2023-11-08] MEDS ORDERED: Omeprazole 20 MG CapCR PO SCH (06:00)
[2023-11-08 06:05] LABS: Bilirubin, Total 0.4 mg/dL (0.1-1.0); Bun/Creatinine Ratio 18.8 (12.0-20.0); Calcium, Blood 8.5 mg/dL (8.5-10.1); Creatinine, Blood 0.85 mg/dL (0.60-1.20); Globulin, Blood 3.1 g/dL (2.2-4.0); Total Protein, Blood 6.1 g/dL (6.4-8.2)
[2023-11-08 07:39] VITALS: BP 119/87
[2023-11-08] MEDS ORDERED: NS 250 ML IV PRN (07:40)
[2023-11-08] MEDS ORDERED: CefTRIAXone Sodium 1,000 MG in NS 100 ML IV SCH (09:00)
[2023-11-08] MEDS ORDERED: Aspirin 81 MG TabEC PO SCH (09:00)
[2023-11-08] MEDS ORDERED: Azithromycin 500 MG in NS 250 ML IV SCH (09:00)
[2023-11-08] MEDS ORDERED: Lactobacil 2-S.Thermo-Bifido 1 1 Cap PO SCH (09:00)
[2023-11-08] MEDS ORDERED: Metoprolol Tartrate 50 MG Tab PO SCH (09:00)
[2023-11-08] MEDS ORDERED: Tamsulosin HCl 0.4 MG Cap PO SCH (09:00)
[2023-11-08] MEDS ORDERED: Enoxaparin 40 MG/0.4 ML SYR SC SCH (09:00)
--- NOTE | 2023-11-08 09:31 | NUR ---
NOTIFIED DR. BLAIR OF SKIN BREAKDOWN ON PATIENT'S BOTTOM; AWARE.
--- NOTE | 2023-11-08 14:12 | NUR ---
[facility] CAME BY TO CHECK ON THE PATIENT AND GET AN UPDATE; UPDATE GIVEN. THEY SAID THAT THE PATIENT IS A 1 PERSON ASSIST WITH A 4 POINT CANE ABOUT 30 FEET AND DOES USE AN ELECTRIC WHEELCHAIR TO GET AROUND. PATIENT DOES NEED TO HAVE HIS SHOES TO AMBULATE; SON WILL BRING IN PATIENT SHOES. DURING THIS TIME REDNESS IN PATIENT'S FACE WAS NOTICED; NO OTHER SYMPTOMS. NOTIFIED DR. BLAIR OF CHRISTINE/REDNESS IN PATIENT'S FACE; PATIENT HAS RECEIVED BOTH IV ANTIBIOTICS THAT WERE ORDERED THIS MORNING; NO ALLERGIES BESIDES BEE LISTED. NO NEW ORDERS FROM DR. BLAIR AT THIS TIME.
[2023-11-08 15:10] VITALS: BP 114/92
[2023-11-08] MEDS ORDERED: Ipratropium/Albuterol SulF 2.5-0.5MG/3 ML Amp INH PRN (15:30)
--- NOTE | 2023-11-08 15:38 | NUR ---
BASED OFF THE INFORMATION PROVIDED BY THE NURSE [facility] WHO CAME BY; AN ATTEMPT WAS MADE TO GET THE PATIENT UP OUT OF BED, PATIENT SHOWS LACK OF MOBILITY AND EXPRESSES THE INABILITY TO GET OUT OF THE BED; STATES THAT HE DOES NOT WALK. PATIENT'S DAUGHTER CALLED AND VERIFIED THAT THE PATIENT HASN'T BEEN ABLE TO WALK IN A LONG TIME. SEIZED ATTEMPT TO GET THE PATIENT OUT OF BED. ALSO NOTIFIED DR. BLAIR OF INCREASED LOWER EXT EDEMA MORE ON THE L THAN R AND THAT THE CHRISTINE/REDNESS IN HIS FACE HAS IMPROVED. DR. BLAIR PLACED ORDERS FOR AN ULTRASOUND AND LAB.
--- NOTE | 2023-11-08 16:57 | NUR ---
SHIFT SUMMARY: PT IS A&OX2-3, USES CALL LIGHT/HOLLERS OUT TO MAKE NEEDS KNOWN, PATIENT CAN BECOME AGGITATED. OVERALL PLEASANT AND COOPERATIVE WITH CARE TODAY. CONCERNS WITH BIBASILAR INSPIRATORY CRACKLES AND LOWER EXT EDEMA; L WORSE THAN R. PATIENT GETTING AN LOWER VENOUS DUPLEX CURRENTLY. PATIENT RESPIRATORY EFFORTS ARE THE SAME; NOT WORSENING. PATIENT STATES THAT HE FEELS BETTER TODAY THAN YESTERDAY. PATIENT'S DAUGHTER STATES THAT HE HAS BEEN THIS SWOLLEN BEFORE AND STATES THAT SHE HAS SEEN HIM WORSE. NO SIGNS OR SYMPTOMS OF DISTRESS, PLAN OF CARE ONGOING.
[2023-11-08 19:53] VITALS: BP 137/87
[2023-11-09 05:32] LABS: BASOPHILS ABSOLUTE AUTO 0.01 K/mm3 (0.00-0.23); BASOPHILS PERCENT AUTO 0 % (0-2); EOSINOPHILS PERCENT AUTO 0 % (0-6); Hematocrit 37.2 % (37.0-53.0); IMMATURE GRAN ABSOLUTE AUTO 0.14 K/mm3 (0.00-0.10); IMMATURE GRAN PERCENT AUTO 1 % (0-1); LYMPHOCYTES ABSOLUTE AUTO 0.85 K/mm3 (0.84-5.20); LYMPHOCYTES PERCENT AUTO 5 % (21-46); MONOCYTES ABSOLUTE AUTO 0.62 K/mm3 (0.16-1.47); MONOCYTES PERCENT AUTO 3 % (4-13); Mean Corpuscular HGB 28.7 pg (26.0-34.0); Mean Corpuscular HGB Conc 32.3 g/dL (31.5-36.5); Mean Corpuscular Volume 89 fL (80-100); Mean Platelet Volume 9.6 fL (9.1-12.4); NEUTROPHILS ABSOLUTE AUTO 17.07 K/mm3 (1.96-9.15); NEUTROPHILS PERCENT AUTO 91 % (41-73); Platelet Count 158 K/mm3 (150-400); RDW Coefficient Variation 14.6 % (11.7-14.2); RDW Standard Deviation 46.8 fL (35.1-46.3); Red Blood Cell Count 4.18 M/mm3 (4.30-5.90); White Blood Cell Count 18.69 K/mm3 (4.00-11.30)
[2023-11-09 06:15] LABS: Bun/Creatinine Ratio 26.2 (12.0-20.0); Calcium, Blood 8.6 mg/dL (8.5-10.1); Creatinine, Blood 0.84 mg/dL (0.60-1.20); Potassium, Blood 4.5 mmol/L (3.5-5.5)
--- NOTE | 2023-11-09 06:27 | NUR ---
SHIFT SUMMARY PATIENT IS ALERT AND ORIENTATED X2 TO 3. HIS CATHETER WAS REMOVED BECAUSE IT WAS NOT COLLECTING HIS URINE AND LEAKED ALL OVER HIS BED. PATIENT WAS CLEANED UP, BED WIPED DOWN AND NEW BEDDING CHANGED AND TUCKS PUT ON. PATIENT SLEPT ON AND OFF THROUGH THE NIGHT. WOULD PRENT DISORIENTED AT TIMES NOT REALIZING HE WAS IN THE HOSPITAL OR SOMETIMES KNOWING HE WAS IN THE HOSPITAL BUT THINKING THEY CHANGED HIS ROOM AROUND AND TOOK HIS REFRIGERATOR. HE WAS POLITE TO STAFF AND RECEPTIVE TO CARE. BED AT LOW POSITION, RAILS X2, CALL LIGHT WITHIN REACH.
[2023-11-09 07:13] VITALS: BP 127/97
[2023-11-09] MEDS ORDERED: PredniSONE 20 MG Tab PO SCH (09:00)
[2023-11-09 14:27] VITALS: BP 122/85
[2023-11-09] MEDS ORDERED: Furosemide 10 MG / ML 2ML Vial IV SCH (16:00)
--- NOTE | 2023-11-09 17:12 | NUR ---
SHIFT SUMMARY: PATIENT IS SHOWING IMPROVEMENT TODAY IN BOTH HIS RESPIRATORY EFFORTS; BACK TO ROOM AIR NOW; O2 SATURATION MAINTAINING ABOVE 90%. HIS SWELLING HIS HIS LOWER EXTREMITIES IS SLIGHTLY IMPROVED. PATIENT DID BECOME RED/CHRISTINE IN THE FACE AGAIN TODAY, BUT THIS WAS WITHOUT ADMINISTERATION OF IV ANTIBIOTICS AND SUBSIDED. PATIENT NOT DISPLAYING ANY SIGNS OR SYMPTOMS OF DISTRESS. SPUTUM CULTURE SENT. HE IS IN BED, CALL LIGHT WITHIN REACH; HE WILL USE AND YELL OUT. CAN MAKE INAPPROPRIATE COMMENTS, BUT OVERALL PLEASANT AND COOPERATIVE. PLAN OF CARE ONGOING.
[2023-11-09 19:50] VITALS: BP 127/106
[2023-11-10 04:52] VITALS: BP 146/109
[2023-11-10 05:31] LABS: BASOPHILS ABSOLUTE AUTO 0.02 K/mm3 (0.00-0.23); BASOPHILS PERCENT AUTO 0 % (0-2); EOSINOPHILS PERCENT AUTO 0 % (0-6); Hemoglobin 11.8 g/dL (13.5-17.5); IMMATURE GRAN ABSOLUTE AUTO 0.12 K/mm3 (0.00-0.10); IMMATURE GRAN PERCENT AUTO 1 % (0-1); LYMPHOCYTES ABSOLUTE AUTO 1.17 K/mm3 (0.84-5.20); LYMPHOCYTES PERCENT AUTO 9 % (21-46); MONOCYTES ABSOLUTE AUTO 0.92 K/mm3 (0.16-1.47); MONOCYTES PERCENT AUTO 7 % (4-13); Mean Corpuscular HGB 28.2 pg (26.0-34.0); Mean Corpuscular HGB Conc 31.9 g/dL (31.5-36.5); Mean Corpuscular Volume 88 fL (80-100); Mean Platelet Volume 9.4 fL (9.1-12.4); NEUTROPHILS ABSOLUTE AUTO 11.61 K/mm3 (1.96-9.15); NEUTROPHILS PERCENT AUTO 84 % (41-73); Platelet Count 165 K/mm3 (150-400); RDW Coefficient Variation 14.6 % (11.7-14.2); RDW Standard Deviation 46.7 fL (35.1-46.3); Red Blood Cell Count 4.19 M/mm3 (4.30-5.90); White Blood Cell Count 13.84 K/mm3 (4.00-11.30)
[2023-11-10 06:18] LABS: Albumin, Blood 3.2 g/dL (3.4-5.0); Albumin/Globulin Ratio 1.1 (0.8-1.8); Bilirubin, Total 0.5 mg/dL (0.1-1.0); Bun/Creatinine Ratio 28.1 (12.0-20.0); Calcium, Blood 8.4 mg/dL (8.5-10.1); Creatinine, Blood 0.82 mg/dL (0.60-1.20); Total Protein, Blood 6.2 g/dL (6.4-8.2)
[2023-11-10 07:55] VITALS: BP 142/98
[2023-11-10] MEDS ORDERED: Metoprolol Tartrate 25 MG Tab PO ONE (09:35)
[2023-11-10 15:41] VITALS: BP 116/90
--- NOTE | 2023-11-10 17:55 | NUR ---
SHIFT SUMMARY; PATIENT CONFUSED THROUGHOUT DAY. HALLUCINATING THIS AFTERNOON SEEING PEOPLE WHO ARE NOT THERE. DAUGHTER COMES TO ROOM AND PATEINT GETS AGITATED WANTING TO GO HOME AND ASKS HER TO HELP HIM GET DRESSED. DAUGHTER ENCOURAGES PATIENT TO STAY AND GET BETTER SO HE CAN GO TO HIS HOME [facility]. 1700 M[address] NOT PROVIDED PATIENT IN A DEEP SLEEP. DOES NOT WANT TO EAT DINNER GOES IMMEDIATELY BACK TO SLEEP. PATEINT PULLED IV OUT THIS AFTERNOON. NOTIFIED AND ORDER FOR NO IV GIVEN. ANTIBIOTICS ARE CHANGED TO PO AND SO IS LASIX. MALE PUREWICK PLACED ON PATIENT AND HE IS ENCOURAGAED TO KEEP IT ON.
[2023-11-10 20:00] VITALS: BP 121/87
[2023-11-10] MEDS ORDERED: Amoxicillin/Clavulanate K 875 MG Tab PO SCH (21:00)
[2023-11-10] MEDS ORDERED: Metoprolol Tartrate 50 MG Tab PO SCH (21:00)
[2023-11-11 03:38] VITALS: BP 140/91
[2023-11-11 06:05] LABS: BASOPHILS ABSOLUTE AUTO 0.04 K/mm3 (0.00-0.23); BASOPHILS PERCENT AUTO 0 % (0-2); EOSINOPHILS ABSOLUTE AUTO 0.06 K/mm3 (0.00-0.68); EOSINOPHILS PERCENT AUTO 1 % (0-6); Hematocrit 39.3 % (37.0-53.0); Hemoglobin 12.5 g/dL (13.5-17.5); IMMATURE GRAN ABSOLUTE AUTO 0.22 K/mm3 (0.00-0.10); IMMATURE GRAN PERCENT AUTO 2 % (0-1); LYMPHOCYTES ABSOLUTE AUTO 1.51 K/mm3 (0.84-5.20); LYMPHOCYTES PERCENT AUTO 15 % (21-46); MONOCYTES ABSOLUTE AUTO 0.89 K/mm3 (0.16-1.47); MONOCYTES PERCENT AUTO 9 % (4-13); Mean Corpuscular HGB Conc 31.8 g/dL (31.5-36.5); Mean Corpuscular Volume 88 fL (80-100); Mean Platelet Volume 9.2 fL (9.1-12.4); NEUTROPHILS ABSOLUTE AUTO 7.39 K/mm3 (1.96-9.15); NEUTROPHILS PERCENT AUTO 73 % (41-73); Platelet Count 179 K/mm3 (150-400); RDW Coefficient Variation 14.5 % (11.7-14.2); RDW Standard Deviation 46.7 fL (35.1-46.3); Red Blood Cell Count 4.46 M/mm3 (4.30-5.90); White Blood Cell Count 10.11 K/mm3 (4.00-11.30)
[2023-11-11 06:27] LABS: Albumin, Blood 3.3 g/dL (3.4-5.0); Bilirubin, Total 0.6 mg/dL (0.1-1.0); Bun/Creatinine Ratio 27.5 (12.0-20.0); Calcium, Blood 8.3 mg/dL (8.5-10.1); Creatinine, Blood 0.98 mg/dL (0.60-1.20); Globulin, Blood 3.3 g/dL (2.2-4.0); Potassium, Blood 4.1 mmol/L (3.5-5.5); Total Protein, Blood 6.6 g/dL (6.4-8.2)
--- NOTE | 2023-11-11 06:56 | NUR ---
SHIFT SUMMARY PATIENT UPON NEURO CHECK APPEARED TO BE AT A DECLINE. PATIENT UNABLE TO TRACK WITH EYES, NOT ABLE TO SMILE WHEN PROMPTED. LITTLE TO NO PUPIL RESPONSE. NOT ABLE SQUEEZE OR EVEN GRASP WITH LEFT HAND. HOGSHEAD BUILDER NOTIFIED, COMPLETED NEURO CHECK AND OFFERED CT. RESULTS ARE PATIENTS FILE. PATIENT DID HAVE SEROQUEL AT 1503 AND HAD SLEEPING FOR SEVERAL HOURS. UPON RETURNING FROM CT HE APPEARED MORE ALERT AND ORIENTATED, ASKING WHAT THEY FOUND OUT. ADVISED PATIENT THAT THEY WOULD BE GO OVER THAT WITH HIM IN THE MORNING. BLADDER SCAN PREFORMED WITH 545ML IN BLADDER. CHARGE NURSE NOTIFIED AND READ FINDINGS OF CT SCAN,ADVISED TO MONITOR AT THIS TIME. PATIENT WHEN AWAKE IS RECEPTIVE TO CARE. AT APPROXIMATELY 0415 PATIENT VOIDED 580 ML. PATIENT APPEARS ALERT AND ORIENTATED X3 ASKING ABOUT HIS SONS. BED AT LOW POSITION RAILS X2, CALL LIGHT WITHIN REACH.
[2023-11-11] MEDS ORDERED: Furosemide 20 MG Tab PO SCH (09:00)
[2023-11-11 10:40] VITALS: BP 134/82
[2023-11-11] MEDS ORDERED: VISBIOME 112.51 EACH PO (12:23)
[2023-11-11] MEDS ORDERED: AMOX-CLAV 875-1 EAC5 PO (12:23)
--- NOTE | 2023-11-11 13:42 | NUR ---
PT DISCHARGED WITH DC INSTRUCTIONS, BELONGINGS SENT HOME INCLUDING PARTIAL DENTURES IN A CUP. CONNECTED TO 2L PORTABLE OXYGEN. 2 PERSON PIVOT TX TO WHEELCHAIR, OUTSIDE FOR S[facility] TO [facility]. THEY ARE PREPAIRED FOR HIM, [facility] STATES THE BED AND OXYGEN HAVE BEEN DELIVERED.
--- NOTE | 2023-11-11 13:44 | NUR ---
0845- DR BLAIR AT BEDSIDE, NOTIFIED OF HR 130'S, PT HAS BEEN MEDICATED WITH AM METOPROLOL, WING PARKS. PT ALSO HAVING ANXIETY, WORKING ON SOME STRESS RELEIVING WELL.
== END 2023-11-11 13:39 | disposition home health service (06) | DRG 871 ==
LOC: ER 07:07 → MEDS 09:49
PROVIDERS: Emergency Medicine; ADMIT Internal Medicine
DX: A41.9 Sepsis, unspecified organism (principal); I50.23 Acute on chronic systolic (congestive) heart failure; J18.9 Pneumonia, unspecified organism; J96.01 Acute respiratory failure with hypoxia; J44.0 Chronic obstructive pulmonary disease with (acute) lower respiratory infection; J44.1 Chronic obstructive pulmonary disease with (acute) exacerbation; F03.93 Unspecified dementia, unspecified severity, with mood disturbance; F03.94 Unspecified dementia, unspecified severity, with anxiety; I69.354 Hemiplegia and hemiparesis following cerebral infarction affecting left non-dominant side; G40.909 Epilepsy, unspecified, not intractable, without status epilepticus; G89.4 Chronic pain syndrome; K21.9 Gastro-esophageal reflux disease without esophagitis; E78.5 Hyperlipidemia, unspecified; N31.9 Neuromuscular dysfunction of bladder, unspecified; I48.91 Unspecified atrial fibrillation; F17.210 Nicotine dependence, cigarettes, uncomplicated; I11.0 Hypertensive heart disease with heart failure; N40.0 Benign prostatic hyperplasia without lower urinary tract symptoms; R65.20 Severe sepsis without septic shock; Z86.14 Personal history of Methicillin resistant Staphylococcus aureus infection; Z98.890 Other specified postprocedural states; Z91.048 Other nonmedicinal substance allergy status; Z79.899 Other long term (current) drug therapy
CPT/HCPCS: 0241U; 36415; 70450; 71045; 80048; 80053; 82947; 83605; 83880; 84145; 84484; 85025; 85379; 85610; 87040; 93005; 93010; 93970; 94640; 94644; 94664; 94760; 94761; 94762; 96365; 96367; 96375; 97162; 97530; 99285-25; A9270; C8929; J0456; J0696; J1650; J1940; J2919; J7050; J7512; Q9957

== ENCOUNTER 2023-12-10 23:08 | Emergency (ER) | payer MEDICARE ==
[~2023-12-10] VITALS: Ht 185.4 cm; Wt 132.4 kg
[~2023-12-10 23:08] MED LIST changes: +ACET325 PO; +ALBU90OI INH; +AMOCLA875 PO; +AMOX-CLAV 875-1 EAC5 PO; +ASPI81CH PO; +AZIT500 PO; +CYMBALTA60 M1 PO; +FLUTICASONE-SAL12 G1 INH; +IPRAT-ALBUT 0.5-3 ML INH; +LOPE2C PO; +MIRALAX17 GM PO; +MYLANTA MAXIMUM10 ML PO; +Mobic15 MG PO; +PRED20 PO; +QUET25 PO; +TAMS.4ER PO; +VISBIOME 112.51 EACH PO
[2023-12-10 23:44] LABS: BASOPHILS ABSOLUTE AUTO 0.04 K/mm3 (0.00-0.23); BASOPHILS PERCENT AUTO 1 % (0-2); EOSINOPHILS ABSOLUTE AUTO 0.32 K/mm3 (0.00-0.68); EOSINOPHILS PERCENT AUTO 4 % (0-6); Hematocrit 36.5 % (37.0-53.0); Hemoglobin 11.3 g/dL (13.5-17.5); IMMATURE GRAN PERCENT AUTO 1 % (0-1); LYMPHOCYTES ABSOLUTE AUTO 1.08 K/mm3 (0.84-5.20); LYMPHOCYTES PERCENT AUTO 13 % (21-46); MONOCYTES ABSOLUTE AUTO 0.63 K/mm3 (0.16-1.47); MONOCYTES PERCENT AUTO 7 % (4-13); Mean Corpuscular HGB 28.2 pg (26.0-34.0); Mean Corpuscular Volume 91 fL (80-100); Mean Platelet Volume 9.5 fL (9.1-12.4); NEUTROPHILS ABSOLUTE AUTO 6.33 K/mm3 (1.96-9.15); NEUTROPHILS PERCENT AUTO 74 % (41-73); Platelet Count 144 K/mm3 (150-400); RDW Coefficient Variation 14.4 % (11.7-14.2); RDW Standard Deviation 48.3 fL (35.1-46.3); Red Blood Cell Count 4.01 M/mm3 (4.30-5.90)
[2023-12-11 00:11] LABS: Albumin/Globulin Ratio 0.9 (0.8-1.8); Bilirubin, Total 0.7 mg/dL (0.1-1.0); Bun/Creatinine Ratio 18.3 (12.0-20.0); Calcium, Blood 8.3 mg/dL (8.5-10.1); Creatinine, Blood 0.99 mg/dL (0.60-1.20); Globulin, Blood 3.2 g/dL (2.2-4.0); Potassium, Blood 3.9 mmol/L (3.5-5.5); Total Protein, Blood 6.2 g/dL (6.4-8.2)
[2023-12-11 02:12] VITALS: BP 134/76
== END 2023-12-11 02:43 | disposition home or self-care (01) ==
LOC: ER 23:08
PROVIDERS: Emergency Medicine
DX: M19.011 Primary osteoarthritis, right shoulder (principal); K21.9 Gastro-esophageal reflux disease without esophagitis; I10 Essential (primary) hypertension; J44.9 Chronic obstructive pulmonary disease, unspecified; I48.91 Unspecified atrial fibrillation; F17.210 Nicotine dependence, cigarettes, uncomplicated; Z68.38 Body mass index [BMI] 38.0-38.9, adult; Z86.73 Personal history of transient ischemic attack (TIA), and cerebral infarction without residual deficits; Z79.82 Long term (current) use of aspirin; Z79.52 Long term (current) use of systemic steroids; Z79.51 Long term (current) use of inhaled steroids; Z79.899 Other long term (current) drug therapy; Z91.030 Bee allergy status
CPT/HCPCS: 71046; 73030; 80053; 82947; 85025; 93005; 93010; 99284-25

== ENCOUNTER 2024-01-22 15:20 | Emergency (ER) | payer MEDICARE ==
[~2024-01-22] VITALS: Ht 177.8 cm; Wt 124.7 kg
[2024-01-22 16:22] LABS: BASOPHILS ABSOLUTE AUTO 0.02 K/mm3 (0.00-0.23); BASOPHILS PERCENT AUTO 0 % (0-2); EOSINOPHILS ABSOLUTE AUTO 0.08 K/mm3 (0.00-0.68); EOSINOPHILS PERCENT AUTO 1 % (0-6); Hematocrit 33.7 % (37.0-53.0); IMMATURE GRAN ABSOLUTE AUTO 0.04 K/mm3 (0.00-0.10); IMMATURE GRAN PERCENT AUTO 1 % (0-1); LYMPHOCYTES ABSOLUTE AUTO 0.85 K/mm3 (0.84-5.20); LYMPHOCYTES PERCENT AUTO 10 % (21-46); MONOCYTES ABSOLUTE AUTO 0.53 K/mm3 (0.16-1.47); MONOCYTES PERCENT AUTO 6 % (4-13); Mean Corpuscular HGB 29.1 pg (26.0-34.0); Mean Corpuscular HGB Conc 32.6 g/dL (31.5-36.5); Mean Corpuscular Volume 89 fL (80-100); Mean Platelet Volume 9.3 fL (9.1-12.4); NEUTROPHILS ABSOLUTE AUTO 7.02 K/mm3 (1.96-9.15); NEUTROPHILS PERCENT AUTO 82 % (41-73); Platelet Count 117 K/mm3 (150-400); RDW Coefficient Variation 13.9 % (11.7-14.2); RDW Standard Deviation 45.1 fL (35.1-46.3); Red Blood Cell Count 3.78 M/mm3 (4.30-5.90); White Blood Cell Count 8.54 K/mm3 (4.00-11.30)
[2024-01-22 16:44] LABS: Albumin, Blood 3.2 g/dL (3.4-5.0); Albumin/Globulin Ratio 1.1 (0.8-1.8); Bilirubin, Total 0.9 mg/dL (0.1-1.0); Bun/Creatinine Ratio 14.4 (12.0-20.0); Calcium, Blood 8.5 mg/dL (8.5-10.1); Creatinine, Blood 1.04 mg/dL (0.60-1.20); Potassium, Blood 3.7 mmol/L (3.5-5.5); Total Protein, Blood 6.2 g/dL (6.4-8.2)
[2024-01-22] MEDS ORDERED: Albuterol 2.5 MG/3 ML VIAL INH SCH (17:30)
[2024-01-22] MEDS ORDERED: Ipratropium Bromide INH 0.02% 0.5 mg/2.5ML Vial INH SCH (17:30)
[2024-01-22 19:38] LABS: Source, Urine Clean Catch
[2024-01-22 19:43] LABS: Blood, Urine 3+ (Neg); Color, Urine Amber (P-Yellow); Glucose Qualitative, Urine Neg (Neg); Ketones, Urine Neg (Neg); Leukocyte Esterase, Urine 1+ (Neg); Nitrite, Urine Neg (Neg); Protein, Urine 2+ (Neg); Urobilinogen, Urine 3+ (Normal)
[2024-01-22 20:06] LABS: Bilirubin, Urine 1+ (Neg)
[2024-01-22 20:13] LABS: Appearance, Urine Hazy (Clear)
[2024-01-22 20:15] LABS: Amorphous Light (0-Heavy); Bacteria Mod /hpf; Mucus Heavy (0-Heavy); Squamous Epithelial Cells Rare /hpf (Few)
[2024-01-22] MEDS ORDERED: Cephalexin Monohydrate 500 MG Cap PO ONE (20:30)
[2024-01-22] MEDS ORDERED: CEPH500 PO (20:32)
[2024-01-22 20:37] VITALS: BP 124/89
== END 2024-01-22 22:25 | disposition home or self-care (01) ==
LOC: ER 15:20
PROVIDERS: Emergency Medicine
DX: N39.0 Urinary tract infection, site not specified (principal); F03.90 Unspecified dementia, unspecified severity, without behavioral disturbance, psychotic disturbance, mood disturbance, and anxiety; I10 Essential (primary) hypertension; J44.9 Chronic obstructive pulmonary disease, unspecified; G40.909 Epilepsy, unspecified, not intractable, without status epilepticus; I48.91 Unspecified atrial fibrillation; E78.5 Hyperlipidemia, unspecified; K21.9 Gastro-esophageal reflux disease without esophagitis; F32.A Depression, unspecified; Z79.899 Other long term (current) drug therapy; F17.210 Nicotine dependence, cigarettes, uncomplicated; Z91.030 Bee allergy status
CPT/HCPCS: 51701; 71045; 80053; 81001; 85025; 87086; 93005; 93010; 99285-25

== ENCOUNTER 2024-02-04 09:47 | Emergency (ER) | payer MEDICARE ==
[~2024-02-04] VITALS: Ht 185.4 cm; Wt 142.9 kg
[~2024-02-04 09:47] MED LIST changes: +CEPH500 PO
[2024-02-04 10:25] LABS: Base Excess Venous 9.5 mmol/L; Bicarbonate Venous 31.2 mmol/L (24.0-30.0); pH Blood Venous 7.34 (7.34-7.37)
[2024-02-04 10:30] LABS: BASOPHILS ABSOLUTE AUTO 0.05 K/mm3 (0.00-0.23); BASOPHILS PERCENT AUTO 1 % (0-2); EOSINOPHILS ABSOLUTE AUTO 0.29 K/mm3 (0.00-0.68); EOSINOPHILS PERCENT AUTO 5 % (0-6); Hematocrit 38.1 % (37.0-53.0); Hemoglobin 12.1 g/dL (13.5-17.5); IMMATURE GRAN ABSOLUTE AUTO 0.04 K/mm3 (0.00-0.10); IMMATURE GRAN PERCENT AUTO 1 % (0-1); LYMPHOCYTES ABSOLUTE AUTO 1.22 K/mm3 (0.84-5.20); LYMPHOCYTES PERCENT AUTO 22 % (21-46); MONOCYTES ABSOLUTE AUTO 0.42 K/mm3 (0.16-1.47); MONOCYTES PERCENT AUTO 8 % (4-13); Mean Corpuscular HGB 28.4 pg (26.0-34.0); Mean Corpuscular HGB Conc 31.8 g/dL (31.5-36.5); Mean Corpuscular Volume 89 fL (80-100); Mean Platelet Volume 8.9 fL (9.1-12.4); NEUTROPHILS ABSOLUTE AUTO 3.56 K/mm3 (1.96-9.15); NEUTROPHILS PERCENT AUTO 64 % (41-73); Platelet Count 166 K/mm3 (150-400); RDW Coefficient Variation 13.5 % (11.7-14.2); RDW Standard Deviation 44.2 fL (35.1-46.3); Red Blood Cell Count 4.26 M/mm3 (4.30-5.90); White Blood Cell Count 5.58 K/mm3 (4.00-11.30)
[2024-02-04 10:49] LABS: Source, Urine Straight Cath
[2024-02-04 10:52] LABS: Bilirubin, Urine Neg (Neg); Blood, Urine Neg (Neg); Glucose Qualitative, Urine Neg (Neg); Ketones, Urine Neg (Neg); Leukocyte Esterase, Urine 1+ (Neg); Nitrite, Urine Neg (Neg); Protein, Urine Neg (Neg); Urobilinogen, Urine 2+ (Normal)
[2024-02-04 10:57] LABS: Albumin, Blood 3.5 g/dL (3.4-5.0); Albumin/Globulin Ratio 1.1 (0.8-1.8); Bilirubin, Total 0.6 mg/dL (0.1-1.0); Bun/Creatinine Ratio 10.3 (12.0-20.0); Calcium, Blood 8.8 mg/dL (8.5-10.1); Creatinine, Blood 0.97 mg/dL (0.60-1.20); Globulin, Blood 3.1 g/dL (2.2-4.0); Total Protein, Blood 6.6 g/dL (6.4-8.2)
[2024-02-04] MEDS ORDERED: BUME1 PO (10:57)
[2024-02-04 11:01] LABS: Appearance, Urine Clear (Clear); Color, Urine Yellow (P-Yellow)
[2024-02-04 11:04] LABS: Bacteria Rare /hpf; Red Blood Cells, Urine 0-2 /hpf (0-2); Squamous Epithelial Cells Rare /hpf (Few)
[2024-02-04 11:29] LABS: Influenza A, PCR NEGATIVE (NEGATIVE); Influenza B, PCR NEGATIVE (NEGATIVE); Resp Syncytial Virus, PCR NEGATIVE (NEGATIVE); SARS-Cov-2 (COVID-19) PCR, MMC NEGATIVE (NEGATIVE)
[2024-02-04 13:30] VITALS: BP 131/74
--- NOTE | 2024-02-04 17:23 | NUR ---
MET WITH PATIENT AND DAUGHTER IN THE ED. DISCUSSED POLST WITH DAUGHTER AND NAVA. HE REPORTED THAT HE WOULD NOT WANT CPR IN THE EVENT THAT HIS HEART WERE TO STOP. WE DISCUSSED THE INTERVENTION SECTION AND PATIENT OPTED FOR LIMITED INTERVENTIONS. WE DISCUSSED HOSPICE SERVICES AND I UPDATED HER ON WHAT KIND OF CARE WOULD BE PROVIDED.
== END 2024-02-04 15:02 | disposition home or self-care (01) ==
LOC: ER 09:47
PROVIDERS: Emergency Medicine
DX: F03.90 Unspecified dementia, unspecified severity, without behavioral disturbance, psychotic disturbance, mood disturbance, and anxiety (principal); K21.9 Gastro-esophageal reflux disease without esophagitis; J44.9 Chronic obstructive pulmonary disease, unspecified; Z86.73 Personal history of transient ischemic attack (TIA), and cerebral infarction without residual deficits; Z79.899 Other long term (current) drug therapy; Z79.51 Long term (current) use of inhaled steroids; Z79.82 Long term (current) use of aspirin; Z91.030 Bee allergy status
CPT/HCPCS: 0241U; 70450; 71045; 80053; 81001; 82140; 82803; 83880; 84484; 85025; 87086; 93005; 93010; 93971; 99285-25

== ENCOUNTER → 2025-03-09 | Outpatient (CLI) | payer MEDICARE ==
[~2025-03-09] MED LIST changes: +BUME1 PO
[2025-03-09 12:54] LABS: Source, Urine Voided
[2025-03-09 13:53] LABS: Bilirubin, Urine Neg (Neg); Color, Urine Yellow (P-Yellow); Glucose Qualitative, Urine Neg (Neg); Ketones, Urine Neg (Neg); Leukocyte Esterase, Urine Neg (Neg); Protein, Urine Neg (Neg); Specific Gravity, Urine 1.020 (1.003-1.022); Urobilinogen, Urine NORM (Normal)
[2025-03-09 14:23] LABS: White Blood Cells, Urine 0-2 /hpf (0-5)
== END | disposition home or self-care (01) ==
LOC: LAB 12:50 → LAB SHORT 12:50
PROVIDERS: Family Medicine
DX: N39.0 Urinary tract infection, site not specified (principal)
CPT/HCPCS: 81001